=== PATIENT | female | born 1975 | race Caucasian/White ===

== ENCOUNTER 2018-08-25 10:38 | Inpatient (IN) ==
[2018-08-25] MEDS ORDERED: NS 1,000 ML IV ONE ×2 (10:53→18:22)
[2018-08-25 11:09] LABS: URINE SOURCE CATH
[2018-08-25 11:12] LABS: BASO# 0.03 X1000 (0.0-0.2); BASO% 0.4 % (0.0-0.8); EOS# 0.05 X1000 (0.0-0.7); EOS% 0.7 % (0.0-10.0); HEMATOCRIT 42.8 % (37.0-47.0); HEMOGLOBIN 14.3 g/dL (12.0-16.0); LYMPH# 2.15 X1000 (1.2-3.4); LYMPH% 30.3 % (20.5-51.1); MCHC 33.4 g/dL (33-37); MCV 89.9 FL (81-99); MONO# 0.57 X1000 (0.11-0.59); MPV 10.5 FL (7.4-10.4); NEUT% 60.6 % (42.2-75.2); PLT 192 X1000 (130-400); RBC 4.76 XMIL (4.2-5.4); RDW 12.7 % (11.5-14.5)
[2018-08-25 11:22] LABS: BILIRUBIN URINE NEGATIVE (NEGATIVE); BLOOD URINE NEGATIVE (NEGATIVE); COLOR YELLOW; GLUCOSE URINE NEGATIVE (NEGATIVE); KETONE URINE NEGATIVE (NEGATIVE); LEUKOCYTES URINE NEGATIVE (NEGATIVE); NITRITE URINE NEGATIVE (NEGATIVE); PH URINE 6.5; PROTEIN URINE TRACE mg/dL (NEGATIVE); SP GRAVITY URINE 1.015; TURBIDITY URINE CLEAR (CLEAR); UROBILINOGEN URINE NORMAL (NORMAL)
[2018-08-25 11:23] LABS: UR EPITHELIAL CELLS <10 /HPF (<10); URINE BACTERIA NEGATIVE /HPF; URINE RBC <10 /HPF (<10); URINE WBC <10 /HPF (<10)
[2018-08-25 11:34] LABS: AGAP 10; ALB/GLOB RATIO 1.4; ALBUMIN 4.1 g/dL (3.5-5.0); ALKALINE PHOSPHATASE 69 U/L (32-104); BUN 11 mg/dL (8-22); CALCIUM 9.2 mg/dL (8.8-10.2); CHLORIDE 102 mmol/L (98-107); COSMO 273; CREATININE 0.6 mg/dL (0.5-0.9); ESTIMATED GFR > 60; GLUCOSE 124 mg/dL (70-104); GOT 51 U/L (10-30); GPT 54 U/L (10-36); MAGNESIUM 1.8 mg/dL (1.5-2.7); POTASSIUM 3.4 mmol/L (3.5-5.1); SODIUM 136 mmol/L (136-145); TCO2 24 mmol/L (25-35); TOTAL BILIRUBIN 0.39 mg/dL (0.20-1.00)
[2018-08-25 12:25] LABS: UR AMPHETAMINES QUAL PRESUMPTIVE POSITIVE (NONE DETECT); UR BARBITUATES QUAL NONE DETECTED (NONE DETECT); UR BENZODIAZEPIN QUAL PRESUMPTIVE POSITIVE (NONE DETECT); UR CANNABINOIDS QUAL PRESUMPTIVE POSITIVE (NONE DETECT); UR COCAINE QUAL NONE DETECTED (NONE DETECT); UR METHADONE QUAL NONE DETECTED (NONE DETECT); UR OPIATES QUAL NONE DETECTED (NONE DETECT); UR OXYCODONE QUAL NONE DETECTED (NONE DETECT); UR PCP QUAL NONE DETECTED (NONE DETECT)
--- NOTE | 2018-08-25 14:06 | PROVIDER DOCUMENTATION ---
This chart was entered by Nicole Persaud Scribe, acting as scribe for Aidan Garces MD. [id number] Abuse/Overdose - General Chief Complaint: Overdose Stated Complaint: overdose Time Seen by Provider: 08/25/18 10:38 Source: patient, EMS (first response) Unable to obtain history due to:: altered Allergies/Adverse Reactions: Allergies Allergy/AdvReac Type Severity Reaction Status Date / Time Penicillins Allergy Severe ANAPHYLAXIS Verified 11/19/16 08:03 Home Medications: Home Medication List Medication Instructions Recorded Confirmed Last Taken Type Gabapentin [Neurontin] 800 mg PO BID 04/26/18 08/25/18 08/24/18 History Clonazepam [Klonopin] 0.5 mg PO BID PRN PRN #20 tab 04/28/18 08/25/18 08/24/18 Rx Levothyroxine [Synthroid] 150 microgm PO DAILY@0700 #90 tab 04/28/18 08/25/18 Rx Bupropion HCl [Bupropion HCl Sr] 150 mg PO DAILY 08/25/18 08/25/18 08/24/18 History - History of Present Illness-Drug/Alcohol Nature of Presenting Problem: 42 yowf presents to the ed via ems with OD of Seroquel. per ems pt took x3 300mg of Seroquel of total of 900mg, pt on exam is lethargic and has slurred mumbling conversation,diaphoretic and tachycardic. This episode of drinking or use began:: this morning (unsure of exact time) Severity: reports: severe Psychiatric Complaints: reports: depressed, ingestion Associated Symptoms: reports: other (ams). denies: diarrhea, nausea, vomiting Any injuries associated with this episode of intoxication?: No Similar Symptoms Previously?: Yes Recently seen or treated by another doctor?: No - Substance Abuse Substance Use: reports: none presently/history of abuse - Overdose List substance(s) ingested.: seroquel 300mg x3 How did the ingestion/other suicidal act come to attention?: family Suicide Risk Assessment: age <19, depressed, prior attempt, drug or ETOH abuse, organized plan, no spouse Clinician's estimation of suicide risk?: uncertain risk Review of Systems - Adult - REVIEW OF SYSTEMS - ADULT ROS:: limited per condition Constitutional: denies: chills, fever Eyes: reports: no symptoms reported Ears, Nose, Mouth & Throat: reports: no symptoms reported Cardiovascular: reports: other (tachy 154). denies: chest pain Respiratory: denies: cough, shortness of breath, wheezing Gastrointestinal: denies: diarrhea, nausea, vomiting Genitourinary: reports: no symptoms reported Musculoskeletal: reports: no symptoms reported Integumentary: reports: no symptoms reported Neurological: denies: dizziness/vertigo, headache/migraines Psychiatric: reports: no symptoms reported Endocrine: reports: no symptoms reported Hematologic/Lymphatic: reports: no symptoms reported Allergic/Immunologic: reports: no symptoms reported All Other Systems: Reviewed and Negative Past History - Adult - PAST MEDICAL HISTORY-ADULT Review of Records: reports: Old Records Reviewed, Nursing Assessment Review, Medications Reviewed, Social history reviewed & non-contributory. Major Childhood Illnesses: reports: denies history Cardiovascular: reports: HTN Respiratory: reports: denies history Gastrointestinal: reports: GERD, hepatitis (C), ulcer (bleeding) Obstetrical/Gynecological: reports: ovarian cysts Genitourinary: reports: denies history Musculoskeletal: reports: denies history Neurological: reports: CVA, stroke deficits (rt side) Psychiatric: reports: anxiety, bipolar, depression, other (schizo; borderline personality disorder, polysubstance abuse) Endocrine/Immune: reports: thyroid disorder Other Conditions: reports: denies history - PRIOR SURGERIES/PROCEDURES Surgical/Procedure History: reports: hysterectomy, orthopedic (extremity) - IMMUNIZATION STATUS Childhood Immunizations: UTD, See Nurse Assessment Flu Vaccine: See Nurse Assessment - FAMILY HISTORY Family History: reviewed, not pertinent - SOCIAL HISTORY Smoking: cigarettes, greater than 1 pack/day Provider spent 3-5 mins advising pt. on dangers of tobacco.: Discussed manners to quit use, and f/u contacts for add'l counseling. Substance Use: alcohol (uoften per past records), other (past hx of IV drug use) Living Situation: family Physical Exam-General - PHYSICAL EXAM-ADULT Exam Limited by: pt is ams Initial Vital Signs Reviewed: Yes - CONSTITUTIONAL General Appearance: moderate distress, thin, lethargic, slow to respond - EYES Eyes: other (pinpoint pupils) - HEAD, EARS, NOSE, MOUTH & THROAT HENMT: moist mucous membranes, dental decay - NECK Neck: full range of motion, normal inspection - RESPIRATORY Respiratory: chest non-tender, lungs clear, normal breath sounds - CARDIOVASCULAR Cardiovascular: normal peripheral pulses, tachycardia (154) - GASTROINTESTINAL (ABDOMEN) Abdominal Exam: soft - LYMPHATIC Lymphatic: no adenopathy - MUSCULOSKELETAL Extremity: normal capillary refill, pelvis stable, other (scabs seen on knuckles ) - SKIN Integumentary: warm/dry, pallor - NEUROLOGIC Neurologic: negative: facial droop - PSYCHIATRIC Psych/Mental Status: disoriented x 3 Progress - PLAN OF CARE/RESULTS Progress/Plan/Lab Results: Vital Signs - 8 hr 08/25/18 11:08 Pulse Rate 121 H Respiratory Rate 17 Blood Pressure 114/73 O2 Sat by Pulse Oximetry 98 Laboratory Results - last 24 hr 08/25/18 08/25/18 08/25/18 10:45 10:45 10:45 WBC 7.10 RBC 4.76 Hgb 14.3 Hct 42.8 MCV 89.9 MCH 30.0 MCHC 33.4 RDW Std Deviation 12.7 Plt Count 192 MPV 10.5 H Immature Gran % (Auto) 0.0 Neut % (Auto) 60.6 Lymph % (Auto) 30.3 Wirt % (Auto) 8.0 Eos % (Auto) 0.7 Baso % (Auto) 0.4 Immature Gran # (Auto) 0.00 Neut # (Auto) 4.30 Lymph # (Auto) 2.15 Wirt # (Auto) 0.57 Eos # (Auto) 0.05 Baso # (Auto) 0.03 Sodium 136 Potassium 3.4 L Chloride 102 Carbon Dioxide 24 L Anion Gap 10 BUN 11 Creatinine 0.6 Estimated GFR/1.73 m2 > 60 BUN/Creatinine Ratio 18 Glucose 124 H Calculated Osmolality 273 Calcium 9.2 Magnesium 1.8 Total Bilirubin 0.39 AST 51 H ALT 54 H Alkaline Phosphatase 69 Troponin T Total Protein 7.0 Albumin 4.1 Globulin 2.9 Albumin/Globulin Ratio 1.4 Urine Source Urine Color Urine Turbidity Urine pH Ur Specific [place] Urine Protein Ur Glucose (Stick) Ur Ketones (Stick) Urine Blood Urine Nitrite Urine Bilirubin Urobilinogen Dipstick Urine Leukocytes Urine WBC (Auto) Urine RBC (Auto) U Epithel Cells (Auto) Urine Bacteria (Auto) Urine Opiates Screen Ur Oxycodone Screen Ur Methadone, Qual Ur Barbiturates Screen Ur Phencyclidine Scrn Ur Amphetamines Screen U Benzodiazepines Scrn Urine Cocaine Screen U Cannabinoids Screen Acetone Level NEGATIVE 08/25/18 08/25/18 08/25/18 10:45 11:02 11:02 WBC RBC Hgb Hct MCV MCH MCHC RDW Std Deviation Plt Count MPV Immature Gran % (Auto) Neut % (Auto) Lymph % (Auto) Wirt % (Auto) Eos % (Auto) Baso % (Auto) Immature Gran # (Auto) Neut # (Auto) Lymph # (Auto) Wirt # (Auto) Eos # (Auto) Baso # (Auto) Sodium Potassium Chloride Carbon Dioxide Anion Gap BUN Creatinine Estimated GFR/1.73 m2 BUN/Creatinine Ratio Glucose Calculated Osmolality Calcium Magnesium Total Bilirubin AST ALT Alkaline Phosphatase Troponin T < 0.010 Total Protein Albumin Globulin Albumin/Globulin Ratio Urine Source CATH Urine Color YELLOW Urine Turbidity CLEAR Urine pH 6.5 Ur Specific [place] 1.015 Urine Protein TRACE A Ur Glucose (Stick) NEGATIVE Ur Ketones (Stick) NEGATIVE Urine Blood NEGATIVE Urine Nitrite NEGATIVE Urine Bilirubin NEGATIVE Urobilinogen Dipstick NORMAL Urine Leukocytes NEGATIVE Urine WBC (Auto) <10 Urine RBC (Auto) <10 U Epithel Cells (Auto) <10 Urine Bacteria (Auto) NEGATIVE Urine Opiates Screen NONE DETECTED Ur Oxycodone Screen NONE DETECTED Ur Methadone, Qual NONE DETECTED Ur Barbiturates Screen NONE DETECTED Ur Phencyclidine Scrn NONE DETECTED Ur Amphetamines Screen PRESUMPTIVE POSITIVE A U Benzodiazepines Scrn PRESUMPTIVE POSITIVE A Urine Cocaine Screen NONE DETECTED U Cannabinoids Screen PRESUMPTIVE POSITIVE A Acetone Level Orders Category Date Time Status Cardiac Monitoring DIRECTED Care 08/25/18 10:54 Active Finger Stick Blood Sugar (ED) DIRECTED Care 08/25/18 10:54 Active Munoz Cath Insertion ORDERED Care 08/25/18 10:56 Active Saline Loc NOW Care 08/25/18 10:[address] HEAD W/O CONTRAST [CT] Stat Exams 08/25/18 13:52 Ordered ACETONE SERUM [CHEM] Stat Lab 08/25/18 10:45 Completed AMMONIA [CHEM] Stat Lab 08/25/18 11:03 Ordered CBC WITH ELECTRONIC DIFF [HEME] Stat Lab 08/25/18 10:45 Completed COMPREHENSIVE METABOLIC PANEL [CHEM] Stat Lab 08/25/18 10:45 Completed MAGNESIUM [CHEM] Stat Lab 08/25/18 10:45 Completed TROPONIN T Stat Lab 08/25/18 10:45 Completed URINALYSIS W/POSS RFLX CULT [URINALYSIS] Stat Lab 08/25/18 11:02 Completed URINE DRUG SCREEN Stat Lab 08/25/18 11:02 Completed 0.9% Sodium Chloride Inj [Ns] 1,000 ml Med 08/25/18 10:53 Discontinued IV 999 mls/hr EKG [EKG] Stat Ther 08/25/18 10:55 Ordered EKG [EKG] Stat Ther 08/25/18 13:53 Ordered Result Diagrams: 08/25/18 10:45 08/25/18 10:45 - REASSESSMENT Reassessment #1 Time Reassessed: 11:28 (114/72 and HR 121) Status: improving Reassessment Comment: pt is still lethargic with dr at bedside Reassessment #2 Time Reassessed: 13:51 Status: unchanged - CONSULTS/PCP/HOSPITALIST Notification #1 *Consult/PCP/Hospitalist*: hospitalist Dr George Time Discussed: 13:51 Reason/Comments: overdose Consult Disposition: Admit Departure - Departure Date of Disposition Decision: 08/25/18 Time of Disposition Decision: 13:52 DIAGNOSIS: Tobacco use disorder, Altered mental status Drug overdose Qualifiers: Encounter type: initial encounter Injury intent: undetermined intent Qualified Code(s): T50.904A - Poisoning by unspecified drugs, medicaments and biological substances, undetermined, initial encounter Disposition: ADMITTED INPATIENT 09 Certified Medical Emergency: Emergent Condition: Stable Additional Freetext Instructions: ED Follow Up Instructions: You have been treated by a care provider in the Emergency Department. These instructions are being provided to you so you can have an understanding of how to care for yourself upon discharge. Upon discharge from the Emergency Department, you are responsible for making arrangements for follow-up care by a physician of your choice. Take all prescribed medications as directed. Return to the Emergency Department immediately for any new or worsening symptoms. You may call the Physician Referral phone number at [phone] to obtain a list of Physicians who are taking new patients. Referrals and Follow-Ups: None,PCP [Primary Care Provider] - - Critical Care Note This patient required my direct & personal management of CC.: Yes Total Time (mins): 36 Critical Care Statement: This patient required my direct personal management to treat or rule out processes, the absence of which, could potentiallly result in sudden, clinically significant life or limb threatening deterioration. Attestation - Physician/ KYRA Attestation Patient care was provided by Advanced Practice Provider:: No The physician spent face to face time with patient:: Yes Advanced Practice Provider documentation review:: Supervising physician onsite and consulted in the evaluation and care of this patient. The physician did have a face to face encounter with the patient. This chart was documented by the indicated scribe, (Nicole Persaud Scribe) and accurately reflects the services I performed and decisions made by me, Aidan Garces MD, as attested by the provider's signature.
--- NOTE | 2018-08-25 14:23 | Diag Imaging Result Doc PS360 ---
CT HEAD W/O CONTRAST - 08/25/2018 INDICATION: unresponsive COMPARISON: None FINDINGS: The ventricles and sulci are normal in size and contour. No intracranial mass or hemorrhage. The skull is intact. The sinuses mastoids and middle ears are clear. IMPRESSION: Negative exam. This exam was performed using automated exposure control, adjustment of mA or kV according to patient size, and/or use of iterative reconstruction technique Electronically signed by Avel Gaona 08/25/2018 2:21 PM
--- NOTE | 2018-08-25 16:19 | HISTORY AND PHYSICAL ---
ER PHYSICIAN: Dr. Aidan Garces. PRIMARY CARE PHYSICIAN: MELONY Ramirez. CHIEF COMPLAINT: Altered mental status. HISTORY OF PRESENT ILLNESS: According to the ER notes and ER doctor, this patient presents to the emergency department via EMS with overdose of Seroquel. Apparently as per report, the patient apparently took 3 tablets of 300 mg Seroquel, a total of 900. The patient is lethargic. She has some slow mumbling speech. She was diaphoretic and tachycardic upon ER evaluation, but now the patient is breathing a little bit better. She is not able to provide more information, only she did not try to harm or kill herself. PAST MEDICAL HISTORY: History of polysubstance abuse. Last time on admission in March 2018, her UDS was exactly the same as today, positive for marijuana, benzodiazepines and methamphetamine. She has history of IV heroin abuse, but apparently as per old record, she was off of drugs for the last 3 years. Hepatitis C, bipolar disorder, seizure disorder,hypothyroidism. PAST SURGICAL HISTORY: Partial hysterectomy, ACL repair in the left leg, laparoscopic cholecystectomy. SOCIAL HISTORY: The patient is homeless, stays sporadically with a partner. The patient smokes marijuana. Denies denies using any pain medications or buying them from the street. Patient reports not using anything else, even though the UDS is positive for many substances. ALLERGIES: Patient is allergic to penicillin, but patient reports that she was taking amoxicillin in the past for toe infection and nothing happened. FAMILY HISTORY: Positive for bipolar disorder in mother, and father has diabetes mellitus. LIST OF MEDICATIONS: Pending for reconciliation. REVIEW OF SYSTEMS: Considering her mental status it was not possible to obtain this information. PHYSICAL EXAMINATION: GENERAL: This is a chronically ill-looking and disheveled, 42-year-old female lying in bed in bed very sedated, but responds to verbal stimuli. VITALS: Temperature has not been checked in the ER. Heart rate 88, respiratory rate 11, blood pressure 117/80, O2 saturation 100% on 2 L nasal cannula. HEENT: Head is normocephalic, atraumatic. Mucous membranes dry. NECK: No JVD noted. No carotid bruits. No lymphadenopathy. No thyromegaly. CARDIOVASCULAR EXAM: S1, S2 heard. No murmurs, gallops, or rubs. Regular rate and rhythm. RESPIRATORY EXAM: Clear bilaterally to auscultation. No work of breathing or using accessory muscles. ABDOMEN: Soft, nontender to palpation. Bowel sounds present. No organomegaly. EXTREMITIES: No clubbing, cyanosis, or edema. Peripheral pulses present in both legs. NEUROLOGICAL EXAM: The patient is definitely sleepy and barely responds to verbal stimuli. Moves 4 extremities spontaneously. LABORATORY DATA: Normal CBC. BMP shows potassium 3.4. UDS positive for amphetamines and benzodiazepines and cannabinoids. ASSESSMENT AND PLAN: 1. Toxic encephalopathy secondary to polysubstance abuse, accidental Seroquel toxication. The patient reports not being suicidal. The patient was very clear and denies any suicidal intention. The patient even though she denies doing that, she continues to abuse methamphetamines and marijuana. At this point, we will send this patient to the intensive care unit for better monitoring. Will start intravenous fluids, in this case 1 liter normal saline bolus and then 150 mL/hour normal saline as well. We will continue to monitor this patient closely. 2. Polysubstance abuse, aware. Patient advised to stop using drugs. 3. Hypothyroidism. We will continue providing same doses of Synthroid. 4. Anxiety disorder. We are going to hold Klonopin because of her current mental status. 5. Disposition: We will send her to intensive care unit. cc: Michael Mayo MD MTDD
[2018-08-25] MEDS ORDERED: PHENERGAN IV PRN (18:22)
[2018-08-25] MEDS ORDERED: LOVENOX SUBQ SCH (18:22)
[2018-08-25] MEDS ORDERED: SODIUM CHLORIDE 0.9% INJ PRN (18:22)
[2018-08-25] MEDS ORDERED: ZOFRAN IV PRN (18:22)
[2018-08-25] MEDS: NS 1,000 ML IV SCH (18:46)
[2018-08-26] MEDS: NS 1,000 ML IV SCH (02:04)
[2018-08-26 05:46] VITALS: BP 128/80
[2018-08-26] MEDS ORDERED: SYNTHROID PO SCH (07:00)
--- NOTE | 2018-08-27 16:17 | DISCHARGE SUMMARY ---
ADMISSION DATE: 08/25/2018 DISCHARGE DATE: 08/26/2018 DISCHARGE DIAGNOSIS: 1. Toxic encephalopathy secondary to recurrent polysubstance abuse apparently improved. 2. Hypothyroidism. 3. Anxiety disorder. HOSPITAL COURSE: Patient was basically admitted to the hospital according to the ER doctor Dr. Garces because of apparently accidental Seroquel overdose. On the UDS from this visit patient was positive for amphetamines, benzodiazepines and cannabinoids. At the time of my initial evaluation patient refused that she was doing drugs. On March 2018 she was basically admitted for same reasons with exactly the same results of UDS. After my initial evaluation she was sent to ICU for better monitoring. As per nurse note patient apparently was feeling much better so at 5 a.m. she decided to leave the hospital AMA. Considering that she has been admitted twice for the same reason I am concerned that she might be back to the hospital soon for the same reasons. Patient after initial evaluation was strongly recommended to stop abusing drugs but she continued to deny that she was abusing them. cc: Michael Mayo MD MTDD
== END 2018-08-26 05:35 | disposition left against medical advice (07) | DRG 917 ==
LOC: ED 10:38 → EDIPHOLD 16:30 → ICU 17:40
PROVIDERS: ATTEND Internal Medicine
CPT/HCPCS: 51702; 70450; 80053; 80101; 80301; 80307; 80324; 80345; 80346; 80353; 80358; 80361; 80365; 81001; 82009; 82140; 83735; 83992; 84484; 85025; 93005; 96360; 99285; G0431; G0434; G0479; G0480; J1650; J7030